=== PATIENT | male | born 1975 | race Caucasian/White ===

== ENCOUNTER 2025-02-22 18:46 | Emergency (ER) | END 2025-02-22 19:25 | disposition left against medical advice (07) | LOC: MADERS 18:46 | DX: Z53.21 Procedure and treatment not carried out due to patient leaving prior to being seen by health care provider (principal) ==

== ENCOUNTER 2025-02-23 16:48 | Emergency (ER) | payer OTHER ==
[2025-02-23 23:21] LABS: HIV (1/2) Antibody/Antigen NONREACTIVE (NonReactive); HIV 1/2 INDEX 0.06 S/CO (<1.00)
== END 2025-02-23 17:30 | disposition home or self-care (01) ==
LOC: MADERS 16:48
DX: L73.9 Follicular disorder, unspecified (principal)
CPT/HCPCS: 36415; 87070; 87205; 87389; 87593; 99283